=== PATIENT | male | born 1955 | race Caucasian/White ===

== ENCOUNTER 2017-04-27 07:59 | Day surgery (SDC) | payer OTHER, MEDICAID ==
[2017-04-27] VITALS (20 sets, daily range): BP systolic 90–117; BP diastolic 51–73
[~2017-04-27] VITALS: Ht 188 cm; Wt 81.6 kg
[~2017-04-27 07:59] MED LIST: CHOL200035 PO; CITA40TA17 PO; CYCL-1 PO; FAMO20TA44 PO; OMEP20CA10 PO; PROP10TA10 PO; SPIR25TA3 PO; SUCR1ORA2 PO
[2017-04-27] MEDS ORDERED: normal saline 1000ml 1,000 ML IV SCH (08:20)
[2017-04-27] MEDS ORDERED: sodium chloride 0.45% 1,000 ML IV SCH (08:33)
[2017-04-27] MEDS ORDERED: MORP15TA PO (08:40)
[2017-04-27] MEDS ORDERED: ONDA8TAB6 PO (08:41)
[2017-04-27] MEDS ORDERED: PANT40TA4 PO (08:42)
[2017-04-27] MEDS ORDERED: PRAV20TA4 PO (08:43)
[2017-04-27] MEDS ORDERED: PROP10TA10 PO (08:44)
[2017-04-27] MEDS ORDERED: ZOLP5TAB8 PO (08:44)
[2017-04-27] MEDS ORDERED: iohexol 300mg/ml 100ml inj. ONE (09:02)
[2017-04-27] MEDS ORDERED: fentaNYL/PF 50MCG/1 ML 2ML syringe IV PRN (09:10)
[2017-04-27] MEDS ORDERED: midazolam 2 mg/2 ml injection IV PRN (09:10)
[2017-04-27] MEDS ORDERED: LIDOcaine 1% (10mg/ml) 2ml vial SQ ONE (09:10)
[2017-04-27 09:23] LABS: BASOPHILS % (AUTO) 0.3 % (0-1); EOSINOPHILS # (AUTO) 0.2 X10'3 (0-0.9); EOSINOPHILS % (AUTO) 3.1 % (0-6); HEMATOCRIT 33.4 % (42.0-52.0); HEMOGLOBIN 11.8 g/dl (14.0-17.9); LYMPHOCYTES # (AUTO) 0.8 X10'3 (1.1-4.8); LYMPHOCYTES % (AUTO) 13.9 % (21-51); MEAN CORPUSCULAR HEMOGLOBIN 31.2 PG (27.0-31.0); MEAN CORPUSCULAR HGB CONC 35.2 % (33.0-36.5); MEAN CORPUSCULAR VOLUME 88.6 FL (78-98); MEAN PLATELET VOLUME 8.9 FL (7.4-10.4); MONOCYTES # (AUTO) 0.4 X10'3 (0-0.9); MONOCYTES % (AUTO) 6.7 % (2-12); NEUTROPHILS # (AUTO) 4.2 X10'3 (1.8-7.7); PLATELET COUNT 127 X10'3 (140-440); RED BLOOD COUNT 3.77 X10'6 (4.70-6.10); RED CELL DISTRIBUTION WIDTH 13.7 % (11.5-14.5); WHITE BLOOD COUNT 5.5 X10'3 (4.5-11.0)
[2017-04-27] MEDS ORDERED: fentaNYL/PF 50MCG/1 ML 2ML syringe ONE (09:41)
[2017-04-27] MEDS ORDERED: midazolam 2 mg/2 ml injection ONE (09:41)
== END 2017-04-27 15:03 | disposition home or self-care (01) ==
LOC: SSTAY O 07:59
PROVIDERS: ATTEND Radiology Diagnostic Radiology
DX: C78.7 Secondary malignant neoplasm of liver and intrahepatic bile duct (principal); C80.1 Malignant (primary) neoplasm, unspecified; K74.60 Unspecified cirrhosis of liver; B19.20 Unspecified viral hepatitis C without hepatic coma; E11.9 Type 2 diabetes mellitus without complications; J44.9 Chronic obstructive pulmonary disease, unspecified; K21.9 Gastro-esophageal reflux disease without esophagitis; M19.90 Unspecified osteoarthritis, unspecified site
CPT/HCPCS: 36415; 47000; 71046; 77012; 82948; 85025; J2250; J3010; J7030; Q9967; 99152; 99153